=== PATIENT | female | born 1950 | race Caucasian/White ===

== ENCOUNTER 2023-06-28 21:33 | Emergency (ER) | payer MEDICARE, SELFPAY ==
[2023-06-28] VITALS (14 sets, daily range): BP systolic 155–159; BP diastolic 104–111; PULSE 85–99; RESP 5–39; TEMP 36.5; O2SAT 88–97; BMI 24.0
--- NOTE | 2023-06-28 21:48 | XR_ITS ---
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 Technique: 1 view chest Findings: The cardiomediastinal silhouette is enlarged. The lungs are clear without infiltrate, effusion, or pneumothorax. The bones are intact. XR/XR chest 1V Impression: Cardiomegaly without acute cardiopulmonary process. Electronically authenticated by: NADINE CAMERON Date: 06/28/2023 22:23
--- NOTE | 2023-06-28 21:48 | ECG_ITS ---
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: : 1950 Requested By: Ryan Gillespie Order Number: [id number] Reading MD: MISSY AVENDANO Measurements Intervals [place] Rate: 101 P: -41704 [place]: -81115 QRS: 87 QRSD: 106 T: 43 QT: 364 QTc: 422 Interpretive Statements 26879 Atrial fibrillation with rapid ventricular response [address] depression, probably digitalis effect [address] & Twave abnormality, probably digitalis effect 5211 Minimal voltage criteria for LVH, may be normal variant 9150 abnormal ECG Compared to ECG 06/07/2019 04:11:15 Left ventricular hypertrophy now present Ventricular premature complex(es) no longer present ST (T wave) deviation still present Electronically Signed On 07-01-2023 5:56:46 EST by MISSY AVENDANO
--- NOTE | 2023-06-28 21:50 | ED.SOB1 ---
HPI - SOB/Dyspnea General Chief Complaint: Shortness of Breath/Dyspnea Stated Complaint: SOB Time Seen by Provider: 06/28/23 21:36 Source: patient Mode of arrival: Wheelchair Limitations: no limitations History of Present Illness HPI Narrative: Patient with COPD presents with increased shortness of breath that began today. She saw her new PCP and was apparently started on a new med for irregular heart rate . She has atrial fibrillation. 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 She ahs never seen a Materials Technician, she and the son told me. Related Data Home Medications Medication Instructions Recorded Confirmed apixaban 2.5 mg tablet (Eliquis) 2.5 mg PO Q12H 06/28/23 06/28/23 aspirin 81 mg chewable tablet 81 mg PO DAILY 06/28/23 06/28/23 atorvastatin 10 mg tablet 10 mg PO DAILY 06/28/23 06/28/23 diltiazem HCl 360 mg capsule,24 360 mg PO DAILY 06/28/23 06/28/23 hr,extended release (Tiadylt ER) furosemide 40 mg tablet 40 mg PO DAILY 06/28/23 06/28/23 metoprolol tartrate 25 mg tablet 25 mg PO BID 06/28/23 06/28/23 Previous Rx's Medication Instructions Recorded albuterol sulfate 90 mcg/actuation 2 inh inhalation Q6H PRN shortness 06/28/23 aerosol inhaler of breath or wheezing #8.5 grams prednisone 20 mg tablet 40 mg (2 x 20 mg) PO DAILY 5 days 06/28/23 #10 tabs Allergies Allergy/AdvReac Type Severity Reaction Status Date / Time Penicillins Allergy Hives Verified 06/28/23 21:47 Sulfa (Sulfonamide Allergy Hives Verified 06/28/23 21:47 Antibiotics) PFSH PFSH Social History Smoking status: Current every day smoker Exam Narrative Exam Narrative: Nurses notes and vital signs reviewed and patient is not hypoxic. afebrile General: Well-appearing and in no apparent distress. Skin: Warm, dry, no pallor noted. Head: Normocephalic, atraumatic. Neck: Supple, non-tender. Eye: Pupils are equal, round and EOMI. No scleral icterus. Cardiovascular: Regular Rate and irregular Rhythm without murmur, gallop or rub. Respiratory: No accessory muscle use or respiratory distress. Lungs with scattered end expiratory wheezes throughout Musculoskeletal: normal ROM, no calf or popliteal tenderness, no lower extremity edema/swelling GI: Abdomen is soft, non-distended. Normal bowel sounds. No tenderness to palpation. No rebound, guarding, or rigidity noted. Neurological: A&O x4. No cranial nerve dysfunction observed. No truncal ataxia. Moves all extremities. Sensation intact. Psychiatric: Cooperative and interactive. Normal mood and affect. Constitutional Vital Signs, click to edit/add: Last Vital Signs Temp 97.7 F 06/28/23 21:40 Pulse 93 H 06/28/23 23:03 Resp 22 06/28/23 23:03 BP 159/111 H 06/28/23 23:03 Pulse Ox 95 06/28/23 23:03 O2 Del Method Room Air 06/28/23 21:40 Course Vital Signs Vital signs: Vital Signs Temperature 97.7 F 06/28/23 21:40 Pulse Rate 95 H 06/28/23 21:40 Respiratory Rate 24 06/28/23 21:40 Blood Pressure 155/104 H 06/28/23 21:40 Pulse Oximetry 95 06/28/23 21:40 Oxygen Delivery Method Room Air 06/28/23 21:40 Temperature 97.7 F 06/28/23 21:40 Pulse Rate 93 H 06/28/23 23:03 Respiratory Rate 22 06/28/23 23:03 Blood Pressure 159/111 H 06/28/23 23:03 Pulse Oximetry 95 06/28/23 23:03 Oxygen Delivery Method Room Air 06/28/23 21:40 MDM - SOB/Dyspnea MDM Narrative Medical decision making narrative: Patient was placed on quality assurance monitor chassis and EKG obtained. Blood drawn and sent for evaluation. Portable chest x-ray obtained. She was ordered to receive IV Solu-Medrol and a DuoNeb treatment. CBC with elevated WBC at 12.3k. CXR without infiltrate. CMP with normal electrolytes, negative LFTs, slightly elevated BUn and Cr. Troponin negative. BNP elevated. EKG without ST elevation. Patient felt better after ED treatment. repeat exam reveals markedly decreased wheezing and improved air exchange. She was informed of results, diagnoses and out-patient treatment plan. 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 She was agreeable to be referred to Dr Sheikh for follow up. Discussed out patient treatment. She was given a dose of IV Lasix tonight before discharged. She will take a short course of steroids at home and use the albuterol inhaler. Pulm follow up as discussed. ED return if worse. Lab Data Attestation: I reviewed the patient's lab results. Labs: Lab Results 06/28/23 Range/Units 22:14 WBC 12.3 H (4.0-11.0) 10^3/uL RBC 4.72 (4.20-5.40) 10^6/uL Hgb 15.4 (12.0-16.0) g/dL Hct 47.7 (36.0-48.0) % MCV 101.1 H (81.0-99.0) fL MCH 32.6 (26.7-34.0) pg MCHC 32.3 (29.9-35.2) g/dL RDW 15.8 H (11.0-15.0) % Plt Count 162 (150-450) 10^3/uL MPV 10.7 (9.5-13.5) fL Neut % (Auto) 69.0 (43.0-75.0) % Lymph % (Auto) 20.2 L (20.5-60.0) % [place] % (Auto) 8.5 (1.7-12.0) % Eos % (Auto) 0.8 L (0.9-7.0) % Baso % (Auto) 1.0 (0.2-2.0) % Neut # (Auto) 8.5 H (1.4-6.5) 10^3/uL Lymph # (Auto) 2.5 (1.2-3.8) 10^3/uL [place] # (Auto) 1.0 H (0.3-0.8) 10^3/uL Eos # (Auto) 0.1 (0.0-0.7) 10^3/uL Baso # (Auto) 0.1 (0.0-0.1) 10^3/uL Abs Immat Gran (auto) 0.06 H (0.00-0.03) 10^3/uL Imm/Tot Granulo (auto) 0.5 (0.0-0.5) % Sodium 143 (136-145) mmol/L Potassium 4.5 (3.5-5.1) mmol/L Chloride 107 (98-107) mmol/L Carbon Dioxide 23.2 (21.0-32.0) mmol/L Anion Gap 17.3 BUN 31.0 H (7.0-18.0) mg/dL Creatinine 1.22 H (0.55-1.02) mg/dL Est GFR ( Amer) 53 L (>=60) Est GFR (Non-Af Amer) 43 L (>=60) BUN/Creatinine Ratio 25.4 Glucose 118 H (74-106) mg/dL Calcium 8.9 (8.5-10.1) mg/dL Total Bilirubin 0.5 (0.2-1.0) mg/dL AST 21 (15-37) U/L ALT 22 (14-59) U/L Alkaline Phosphatase 98 (46-116) U/L Troponin I High Sens 15.3 (4.0-51.3) pg/mL NT-Pro-B Natriuret Pep 5385.0 H* (<=900.0) pg/mL Total Protein 7.4 (6.4-8.2) g/dL Albumin 3.3 L (3.4-5.0) g/dL Globulin 4.1 g/dL Albumin/Globulin Ratio 0.8 Imaging Data Chest x-ray: Radiologist's impression: ITS Impressions Chest X-Ray 06/28/23 21:48 Impression: Cardiomegaly without acute cardiopulmonary process. Electronically authenticated by: NADINE CAMERON Date: 06/28/2023 22:23 ECG Data Attestation: I personally reviewed and interpreted this ECG as follows: Interpretation: EKG interpretation: Emergency Department physician interpretation. Rate controlled atrial fibrillation at 101bpm. LVH. Nonspecific ST and T wave changes. No ST segment elevation or depression. Discharge Plan Discharge Chief Complaint: Shortness of Breath/Dyspnea Clinical Impression: Atrial fibrillation, COPD exacerbation Patient Disposition: Home, Self-Care Time of Disposition Decision: 23:11 Prescriptions / Home Meds: New prednisone 20 mg tablet 40 mg PO DAILY 5 Days Qty: 10 0RF albuterol sulfate 90 mcg/actuation HFA aerosol inhaler 2 inh inhalation Q6H PRN (Reason: shortness of breath or wheezing) Qty: 8.5 0RF No Action atorvastatin 10 mg tablet 10 mg PO DAILY diltiazem HCl [Tiadylt ER] 360 mg capsule,extended release 24 hr 360 mg PO DAILY furosemide 40 mg tablet 40 mg PO DAILY metoprolol tartrate 25 mg tablet 25 mg PO BID Eliquis 2.5 mg tablet 2.5 mg PO Q12H aspirin 81 mg tablet,chewable 81 mg PO DAILY Instructions: A-fib (Atrial Fibrillation) (ED), COPD (Chronic Obstructive Pulmonary Disease) (ED) Referrals: Physician,Non-Staff, [Physician] - 1 week Ervin Sheikh DO [Physician] - As soon as possible Stand Alone Forms: Portal Instructions
[2023-06-28 22:24] LABS: Basophils Absolute Auto 0.1 10^3/uL (0.0-0.1); Eosinophils Absolute Auto 0.1 10^3/uL (0.0-0.7); Eosinophils Percent Auto 0.8 % (0.9-7.0); Hematocrit 47.7 % (36.0-48.0); Hemoglobin 15.4 g/dL (12.0-16.0); Immature Granulocytes Abs Auto 0.06 10^3/uL (0.00-0.03); Immature Granulocytes Pct Auto 0.5 % (0.0-0.5); Lymphocytes Absolute Auto 2.5 10^3/uL (1.2-3.8); Lymphocytes Percent Auto 20.2 % (20.5-60.0); Mean Corpuscular HGB Conc 32.3 g/dL (29.9-35.2); Mean Corpuscular Hemoglobin 32.6 pg (26.7-34.0); Mean Corpuscular Volume 101.1 fL (81.0-99.0); Mean Platelet Volume 10.7 fL (9.5-13.5); Monocytes Percent Auto 8.5 % (1.7-12.0); Neutrophils Absolute Auto 8.5 10^3/uL (1.4-6.5); Platelet Count 162 10^3/uL (150-450); Red Blood Count 4.72 10^6/uL (4.20-5.40); Red Cell Distribution Width 15.8 % (11.0-15.0); White Blood Count 12.3 10^3/uL (4.0-11.0)
[2023-06-28] MEDS: IPRATROPIUM/ALBUTEROL SULFATE 3 ML AMPUL.NEB IH (22:26)
[2023-06-28] MEDS: METHYLPREDNISOLONE SOD SUCC PF 125 MG/2 ML VIAL IVP (22:34)
[2023-06-28 22:48] LABS: Alanine Aminotransferase 22 U/L (14-59); Albumin Globulin Ratio 0.8; Albumin Level 3.3 g/dL (3.4-5.0); Alkaline Phosphatase 98 U/L (46-116); Anion Gap 17.3; Aspartate Amino Transferase 21 U/L (15-37); BUN Creatinine Ratio 25.4; Bilirubin Total 0.5 mg/dL (0.2-1.0); Calcium 8.9 mg/dL (8.5-10.1); Carbon Dioxide 23.2 mmol/L (21.0-32.0); Chloride 107 mmol/L (98-107); Estimated GFR (African America 53 (>=60); Estimated GFR (Non-African Ame 43 (>=60); Globulin 4.1 g/dL; Glucose 118 mg/dL (74-106); Potassium 4.5 mmol/L (3.5-5.1); Sodium 143 mmol/L (136-145); Total Protein 7.4 g/dL (6.4-8.2); Troponin I High Sensitivity 15.3 pg/mL (4.0-51.3)
[2023-06-28] MEDS: FUROSEMIDE 40 MG/4 ML VIAL IVP (23:07)
== END 2023-06-28 23:40 | disposition home or self-care (01) ==
PROVIDERS: Emergency Provider Emergency Medicine; PCP Nurse Practitioner Family
DX: J44.1 Chronic obstructive pulmonary disease with (acute) exacerbation (principal); I48.91 Unspecified atrial fibrillation; F17.210 Nicotine dependence, cigarettes, uncomplicated; Z79.82 Long term (current) use of aspirin; Z79.899 Other long term (current) drug therapy
CPT/HCPCS: 36415; 71045; 80053; 83880; 84484; 85025; 93005; 94640; 96374; 96375; 99285; J2930